=== PATIENT | female | born 1940 | race Caucasian/White ===

== ENCOUNTER → 2016-08-20 | Outpatient (CLI) | payer MEDICARE, BC ==
[~2016-08-20] MED LIST: B COMPLETE1 EACH PO; CELEXA40 MG PO; COREG25 MG PO; FEOSOL325 MG PO; FISH OIL 1,0001 EAC5 PO; LASIX40 MG PO; LOSARTAN-HCTZ1 EACH PO; NORCO 5-325 MG1 TAB PO; NORVASC5 MG PO; POTASSIUM CHLO20 ME1 PO; PRILOSEC20 MG PO; Q-DRYL25 MG PO; ZOCOR20 MG PO
--- NOTE | ~2016-08-20 | ESTC ---
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 Risks, complications and alternative treatments were reviewed. Written consent was obtained. Medications Reviewed with Patient prior to Procedure. Procedure Procedure Type: Nuclear Stress Test:Pharmacological, Lexiscan, Cardiolite Stress Test Procedure Start time: 08/20/2016 08:25 Indications: Dyspnea with exertion. Risk Factors The patient risk factors include:former tobacco use, treated hypercholesterolemia, treated hypertension, previous cardiac transplant and dyslipidemia. Conclusions Impression ECG portion of lexiscan stress test is clinically negative for ischemia by diagnostic criteria. Myocardial perfusion imaging is essentially normal. The tiny apical wall matched defect is suggestive of apical thinning, normal variant. Overall left ventricular systolic function was normal without regional wall motion abnormalities. calculated LVEF is 77% and TID ratio is 0.96. There are no previous studies for comparison. Stress Protocols Resting ECG Sinus bradycardia. Pre-stress physical exam: Patient assessed by Nae SIMPSON prior to testing. Chest - CTA Cardio - RRR, S1, S2 Predicted HR: 146 bpm HR response: Appropriate BP response: Appropriate Reason for termination:Infusion complete ECG Findings No ECG changes suggestive of ischemia. Arrhythmias No rhythm abnormality. Symptoms Shortness of breath. Flushing Complications Procedure complication: None. Stress Interpretation Appropriate hemodynamic response to Lexiscan. No significant ST-T wave changes with Lexiscan. ECG portion is negative for ischemia by diagnostic criteria. Will correlate with nuclear images. Imaging Results Applied corrections - Motion correction applied High risk findings Summed scores - Summed stress score: 6 - Summed rest score: 3 - Summed difference score: 3 Stress ejection Ejection fraction:76 % EDV :85 ml ESV :20 ml Stroke volume :65 ml LV mass :131 gr Imaging Protocols Rest Stress Isotope:Tc99m Sestamibi IV Isotope: Tc99m Sestamibi IV Isotope dose:14.9 mCi Isotope dose:46.3 mCi Date:08/20/2016 07:20 Date:08/20/2016 09:10 Technique: SPECT Technique: Gated Supine SPECT Supine Scan Time:45-60 minutes post Scan Time:45-60 minutes post injection injection Procedure Medications - Regadenoson (Lexiscan) 0.4 mg IV over 10-15 sec. I.V. 0.4 mg. Medications administered per verbal order and read back to physician prior to administration. Medical History Admission Data Admission date: 08/20/2016 Admission Time: 06:58 Hospital Status: Outpatient. Signatures dtt: YANA CERVANTES dtd: 08/20/16 0825 Physician Self Edit
== END | disposition disaster alternative care site (69) ==
LOC: GRAD 06:58
DX: R06.02 Shortness of breath (principal); I10 Essential (primary) hypertension; E78.5 Hyperlipidemia, unspecified; E78.00 Pure hypercholesterolemia, unspecified; R14.0 Abdominal distension (gaseous); Z87.891 Personal history of nicotine dependence; Z94.1 Heart transplant status
CPT/HCPCS: A9500; J2785

== ENCOUNTER → 2016-08-23 | Outpatient (CLI) | payer MEDICARE, BC ==
[~2016-08-23] VITALS: Ht 160 cm; Wt 94.4 kg
--- NOTE | ~2016-08-23 | ECHO ---
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 Summary Normal LV/RV size and systolic function. The estimated left ventricular ejection fraction is 65-70%. Mild concentric left ventricular hypertrophy. Diastolic assessment reveals Grade I diastolic dysfunction. Mild mitral annular calcification. Mild mitral regurgitation by color Doppler. The aortic valve is mildly sclerotic. Mild tricuspid regurgitation by color Doppler. There is mild pulmonary hypertension. The pulmonary pressure (RVSP) is 41 mmHg. Small circumferential pericardial effusion. There is no echocardiographic evidence of cardiac tamponade. Procedure Type of Study TTE procedure:2D Echocardiogram. Procedure Date Date: 08/23/2016 Start: 09:12 AM Study Location: Inpatient Portable Technical Quality: Adequate visualization Indications:Dyspnea/SOB. Appropriate Use Criteria: 9 Patient Status: Routine HR: 67 bpm BP: 153/67 mmHg M-Mode/2D Measurements LV Diastolic Dimension: 4.42 cm LV Systolic Dimension: 3.02 cm LV Septum Diastolic: 1.4 cm LV PW Diastolic: 1.53 cm AO Root Dimension: 2 cm Cardiac Output: 4.67 l/min AV Cusp Separation: 1.7 cm RV Diastolic Dimension: 2.62 cm LA volume: 41 ml LVOT: 2 cm RV Base: 2.93 cm LVOT VTI: 22.2 cm RV Mid: 1.87 cm LV Stroke volume: 69.71 ml TAPSE: 1.89 cm TDI-S': 13.7 cm/s Doppler Measurements AV Peak Velocity: 1.43 m/s MV Peak E-Wave: 0.71 m/s AV Peak Gradient: 8.18 mmHg MV Peak A-Wave: 0.92 m/s AV Mean Gradient: 4 mmHg MV E/A Ratio: 0.77 LVOT Peak Velocity: 0.95 m/s MV P1/2t: 58 msec TR Gradient:37.95 mmHg PV Peak Velocity: 1.13 m/s Estimated RAP:10 mmHg PV Peak Gradient: 5.11 mmHg Estimated RVSP: 48 mmHg Estimated PASP: 47.95 mmHg E' Septal Velocity: 0.04 m/s A' Septal Velocity: 0.08 m/s E' Lateral Velocity: 0.04 m/s A' Lateral Velocity: 0.09 m/s Findings Left Ventricle Mild concentric left ventricular hypertrophy. Diastolic assessment reveals Grade I diastolic dysfunction. Right Ventricle Normal right ventricle structure and function. Left Atrium Mildly dilated LA. Right Atrium IVC measures 1.36 cm with inspiratory collapse. Mitral Valve Mild mitral annular calcification. Mild mitral regurgitation by color Doppler. Aortic Valve The aortic valve is mildly sclerotic. Tricuspid Valve Mild tricuspid regurgitation by color Doppler. There is moderate pulmonary hypertension. The pulmonary pressure (RVSP) is 41 mmHg. Pulmonic Valve Normal pulmonic valve structure and function. Pericardial Effusion Small circumferential pericardial effusion. There is no echocardiographic evidence of cardiac tamponade. Miscellaneous Visualized portions of the aortic root and ascending aorta appear normal in size. Pleural Effusion No evidence of pleural effusion. Contractility Score LV regional wall motion:(0-Non visualized 1-Normal 2-Hypokinesis 3-Akinesis 4-Dyskinesis 5-Aneurysm) Signature dtt: YANA CERVANTES dtd: 08/23/16 0912 Physician Self Edit
== END | disposition disaster alternative care site (69) ==
LOC: GOPD 08-17
DX: R06.02 Shortness of breath (principal); I51.7 Cardiomegaly; I50.9 Heart failure, unspecified; I34.0 Nonrheumatic mitral (valve) insufficiency; I07.1 Rheumatic tricuspid insufficiency; I27.2 Other secondary pulmonary hypertension; I31.3 Pericardial effusion (noninflammatory); R14.0 Abdominal distension (gaseous)
CPT/HCPCS: J2001; J7030